=== PATIENT | female | born 1965 | race Asian ===

== ENCOUNTER 2024-05-12 17:35 | Emergency (ER) | payer BC ==
[~2024-05-12] VITALS: Ht 177.8 cm; Wt 61.2 kg
[2024-05-12 17:52] VITALS: BP_SYST 111; PULSE 64; RESP 16; TEMP 97.3; O2SAT 98
[2024-05-12] MEDS ORDERED: IBUP-1969 PO (18:53)
[2024-05-12 19:25] VITALS: BP_SYST 120; PULSE 60; RESP 18; TEMP 97.5; O2SAT 99
== END 2024-05-12 19:25 | disposition home or self-care (01) ==
LOC: SED 17:35
DX: R51.9 Headache, unspecified (principal); R42 Dizziness and giddiness; R07.89 Other chest pain; M54.2 Cervicalgia
CPT/HCPCS: 93005; 99283